=== PATIENT | female | born 1985 | race Caucasian/White ===

== ENCOUNTER 2016-04-15 13:14 | Emergency (ER) | payer OTHER ==
[~2016-04-15] VITALS: Ht 172.7 cm; Wt 79.5 kg
[~2016-04-15 13:14] MED LIST: IBUP800T23 PO; MACR100C PO; Z.0.NO CURRENT MEDS
[2016-04-15 13:16] VITALS: BP 119/86; PULSE 78; RESP 20; TEMP 98.1; O2SAT 97
== END 2016-04-15 19:00 | disposition left against medical advice (07) ==
LOC: NED 13:14
DX: Z53.21 Procedure and treatment not carried out due to patient leaving prior to being seen by health care provider (principal)
CPT/HCPCS: 99281

== ENCOUNTER 2016-04-16 00:30 | Emergency (ER) | payer OTHER ==
[2016-04-16 00:33] VITALS: BP 114/62; PULSE 86; RESP 16; TEMP 98; O2SAT 98
== END 2016-04-16 04:25 | disposition left against medical advice (07) ==
LOC: NED 00:30
DX: R68.89 Other general symptoms and signs (principal); Z53.21 Procedure and treatment not carried out due to patient leaving prior to being seen by health care provider
CPT/HCPCS: 99281